=== PATIENT | female | born 1985 | race Caucasian/White ===

== ENCOUNTER 2023-06-24 07:25 | Emergency (ER) | payer SELFPAY ==
[2023-06-24] MEDS ORDERED: Ondansetron PF 4 MG/2 ML Vial ONE (08:01)
[2023-06-24] MEDS ORDERED: Diazepam 10 MG/2 ML SYRINGE ONE (08:01)
[2023-06-24] MEDS ORDERED: Ketorolac Tromethamine 30 MG/ML VIAL ONE (08:01)
[2023-06-24 08:24] LABS: Hematocrit 38.1 % (34.9-44.5); Hemoglobin 12.9 g/dL (12.0-15.5); Manual Diff?? YES; Mean Corpuscular HGB CONC 33.9 g/dL (32.0-36.0); Mean Corpuscular Hemoglobin 30.2 pg (27.0-33.0); Mean Corpuscular Volume 89.2 fl (81.6-98.3); Mean Platelet Volume 8.8 fl (7.4-10.4); Platelet Count 239 10x3/uL (150-450); RBC Distribution Width 11.7 % (11.5-14.5); Red Blood Cell (RBC) Count 4.27 10x6/uL (3.90-5.03); White Blood Cell (WBC) Count 9.3 10x3/uL (3.5-10.5)
[2023-06-24 08:45] LABS: Band 1 % (5-11); Lymphocytes 21 % (21-51); Monocytes 6 % (0-10)
[2023-06-24 08:46] LABS: Neutrophil 72 % (42-75); RBC Morph Comment Within Normal Limits
[2023-06-24 08:47] LABS: Platelet Adequacy Comment Appears Adequate
[2023-06-24 09:00] LABS: ALT (SGPT) 24 U/L (8-55); AST (SGOT) 19 U/L (5-34); Alkaline Phosphatase 86 U/L (40-110); Anion Gap 12 mmol/L (10-20); BUN (Urea Nitrogen) 14 mg/dL (7.0-18.7); Bilirubin, Total 0.4 mg/dL (0.2-1.2); Calc. Creatinine Clearance 0 mL/min (70-130); Calcium 8.6 mg/dL (7.8-10.44); Carbon Dioxide 25 mmol/L (22-29); Chloride 107 mmol/L (98-107); Estimated GFR 97; Globulin 2.9 g/dL (2.4-3.5); Glucose 94 mg/dL (70-105); Lipase 15 U/L (8-78); Protein, Total 6.9 g/dL (6.0-8.3); Sodium 140 mmol/L (136-145)
[2023-06-24 09:28] LABS: Bilirubin Neg (Negative); Blood, Urine 25 (Negative); Clarity Clear (Clear); Glucose, Urine (Dipstick) Normal (Negative); Ketone, Urine Negative (Negative); Leukocyte Negative (Negative); Nitrite Negative (Negative); Pregu Control Background? CLEAR/WHITE (CLR/WHITE); Pregu Control Bar Appear? YES (CONTROL BAR); Protein, Urine (Dipstick) Negative (Neg-Trace); Urobilinogen Normal mg/dL (Less than 2)
[2023-06-24 09:29] LABS: Pregnancy Test - Urine (BHCG) Negative (Negative)
[2023-06-24 09:35] LABS: CAUTI Indications for Culture Pelvic or flank pain; RBC/HPF 0-3 HPF (0-3); WBC/HPF 0-3 HPF (0-3)
[2023-06-24 09:36] LABS: Bacteria/HPF 1+ HPF (None Seen)
[2023-06-24 09:37] LABS: Urine Culture Reflex No No
== END 2023-06-24 14:17 | disposition home or self-care (01) ==
LOC: CSHERS 07:25
DX: R42 Dizziness and giddiness (principal); R10.9 Unspecified abdominal pain
CPT/HCPCS: 74176; 80053; 81001; 81025; 83690; 85025; 96361; 96374; 96375; J1885; J2405; J3360